=== PATIENT | male | born 1985 | race Caucasian/White ===

== ENCOUNTER 2018-01-07 14:19 | Emergency (ER) | payer OTHER, BC ==
[~2018-01-07] VITALS: Ht 177.8 cm; Wt 90.9 kg
[2018-01-07 14:24] VITALS: BP 120/72; TEMP 98.3
[2018-01-07] MEDS ORDERED: CELEXA40 MG PO (14:27)
[2018-01-07] MEDS ORDERED: FLEXERIL 1010 MG/TAB PO (15:46)
[2018-01-07 15:56] VITALS: PULSE 76
== END 2018-01-07 15:58 | disposition home or self-care (01) ==
LOC: COL.ER 14:19
DX: S16.1XXA Strain of muscle, fascia and tendon at neck level, initial encounter (principal); S39.012A Strain of muscle, fascia and tendon of lower back, initial encounter; V69.49XA Driver of heavy transport vehicle injured in collision with other motor vehicles in traffic accident, initial encounter

== ENCOUNTER → 2018-11-11 | Outpatient (REF) ==
[~2018-11-11] MED LIST: CELEXA40 MG PO; FLEXERIL 1010 MG/TAB PO
== END ==
LOC: WSPT 08:15
DX: Z02.1 Encounter for pre-employment examination (principal)

== ENCOUNTER 2020-01-16 03:58 | Emergency (ER) | payer MEDICAID ==
[~2020-01-16] VITALS: Ht 177.8 cm; Wt 101.8 kg
[2020-01-16 06:02] VITALS: BP 122/83; PULSE 61
== END 2020-01-16 06:24 | disposition home or self-care (01) ==
LOC: COL.ER 03:58
DX: M79.671 Pain in right foot (principal); G89.18 Other acute postprocedural pain; Z98.890 Other specified postprocedural states
CPT/HCPCS: J1170; J1885; J3010

== ENCOUNTER 2021-07-31 12:35 | Emergency (ER) | payer MEDICAID ==
[~2021-07-31] VITALS: Ht 177.8 cm; Wt 107.3 kg
[2021-07-31 12:37] VITALS: TEMP 98
[2021-07-31 15:04] VITALS: BP 118/74; PULSE 72
== END 2021-07-31 15:09 | disposition short-term general hospital (02) ==
LOC: COL.ER 12:35
DX: S62.633B Displaced fracture of distal phalanx of left middle finger, initial encounter for open fracture (principal); U07.1 COVID-19; F32.A Depression, unspecified; Z79.899 Other long term (current) drug therapy; Z23 Encounter for immunization; W27.0XXA Contact with workbench tool, initial encounter
CPT/HCPCS: J2270

== ENCOUNTER 2021-11-01 08:49 | Emergency (ER) | payer MEDICAID ==
[~2021-11-01] VITALS: Ht 177.8 cm; Wt 104.5 kg
[2021-11-01 08:58] VITALS: TEMP 98
[2021-11-01] MEDS ORDERED: ZOFRAN ODT4 MG PO (11:07)
[2021-11-01 11:21] VITALS: BP 134/84; PULSE 75
== END 2021-11-01 11:21 | disposition home or self-care (01) ==
LOC: COL.ER 08:49
DX: G43.909 Migraine, unspecified, not intractable, without status migrainosus (principal); Z20.822 Contact with and (suspected) exposure to COVID-19
CPT/HCPCS: J1885; J2405; J7120

== ENCOUNTER 2023-10-23 20:35 | Emergency (ER) | payer OTHER, MEDICAID ==
[~2023-10-23] VITALS: Ht 175.3 cm; Wt 113.6 kg
[~2023-10-23 20:35] MED LIST changes: +ZOFRAN ODT4 MG PO
[2023-10-23 20:40] VITALS: TEMP 98.4
[2023-10-23] MEDS ORDERED: Ondansetron 4 MG/2 ML VIAL IV ONE (21:00)
[2023-10-23] MEDS ORDERED: LR 1,000 ML IV ONE (21:00)
[2023-10-23] MEDS ORDERED: Morphine 4 MG/ML VIAL IV ONE (21:15)
[2023-10-23 21:25] LABS: BASO % 0.4 % (0.0-2.0); EOS # 0.2 K/mm3 (0.0-0.7); EOS % 2.2 % (0.0-4.0); GRAN # 7.9 K/mm3 (1.4-6.5); GRAN % 77.6 % (42.2-75.2); HEMATOCRIT 46.1 % (42.0-52.0); HEMOGLOBIN 16.4 g/dl (13.5-18.0); LYMPH # 1.4 K/mm3 (1.2-3.4); LYMPH % 14.2 % (20.0-51.0); MEAN CELL VOLUME 86 fl (80.0-100.0); MEAN CORPUSCULAR HEMOGLOBIN 31 pg (27-31); MEAN CORPUSCULAR HGB CONC 36 g/dl (33.0-37.0); MEAN PLATELET VOLUME 10.4 fl (7.4-10.4); MONO # 0.6 K/mm3 (0.1-0.6); MONO % 5.4 % (1.7-9.3); PLATELET COUNT 227 K/mm3 (130-400); RED BLOOD COUNT 5.38 M/mm3 (4.20-5.60); REDCELL DISTRIBUTION WIDTH-CV 11.9 % (11.5-14.5)
[2023-10-23 21:44] LABS: ALBUMIN 4.5 g/dL (3.5-5.0); BILIRUBIN,TOTAL 0.7 mg/dL (0.2-1.2); C-REACTIVE PROTEIN 0.21 mg/dL (0.00-0.50); CREATININE, serum 0.98 mg/dL (0.72-1.25); POTASSIUM 3.9 mEq/L (3.5-4.5); TOTAL PROTEIN 7.5 g/dl (6.2-8.1)
[2023-10-23] MEDS ORDERED: Iohexol 350 - 100 ML VIAL IV ONE (22:01)
[2023-10-23] MEDS ORDERED: NS 74 ML IV ONE (22:03)
[2023-10-23] MEDS ORDERED: Haloperidol Lactate 5 MG/ML VIAL IV ONE (22:15)
[2023-10-23] MEDS ORDERED: ZOFRAN ODT4 MG PO (22:35)
[2023-10-23] MEDS ORDERED: PERCOCET 325 MG1 TA2 PO (22:35)
[2023-10-23 22:38] VITALS: BP 139/91; PULSE 68
[2023-10-23] MEDS ORDERED: Home Ondansetron ODT 4 MG #2 ODT/PACK PO ONE (22:45)
[2023-10-23] MEDS ORDERED: Home oxyCODONE/Acetaminophen 5/325 MG #4 TAB/PACK PO ONE (22:45)
== END 2023-10-23 22:59 | disposition home or self-care (01) ==
LOC: COL.ER 20:35
PROVIDERS: Family Medicine
DX: R10.9 Unspecified abdominal pain (principal); R14.0 Abdominal distension (gaseous); R11.2 Nausea with vomiting, unspecified
CPT/HCPCS: J1630; J2270; J2405; J7120; Q9967